=== PATIENT | male | born 1985 | race Caucasian/White ===

== ENCOUNTER 2022-03-18 01:44 | Outpatient (CLI) | payer OTHER | END 2022-03-18 01:45 | disposition critical access hospital (66) | LOC: EMS 01:44 | DX: R07.9 Chest pain, unspecified (principal) | CPT/HCPCS: A0425; A0427 ==

== ENCOUNTER 2022-03-18 02:02 | Emergency (ER) | payer OTHER ==
[2022-03-18] MEDS ORDERED: LIDOCAINE VISCOUS 2% 15 ML UDC MM STA (02:06)
[2022-03-18] MEDS ORDERED: MAG HYDROX/AL HYDROX/SIMETH 30 ML UDC PO STA (02:06)
[2022-03-18 02:47] LABS: BASOPHILS # (AUTO) 0.1 10^3/uL (0.0-0.1); BASOPHILS % (AUTO) 0.6 %; EOSINOPHILS # (AUTO) 0.1 10^3/uL (0.0-0.7); EOSINOPHILS % (AUTO) 1.1 %; HCT - HEMATOCRIT 37.4 % (42.0-52.0); HGB - HEMOGLOBIN 13.3 g/dL (14.0-18.0); LYMPHOCYTES # (AUTO) 1.9 10^3/uL (1.5-3.5); LYMPHOCYTES % (AUTO) 18.6 %; MEAN CORPUSCULAR HEMOGLOBIN 31.2 pg (27.0-31.0); MEAN CORPUSCULAR HGB CONC 35.6 g/dL (32.0-36.0); MEAN CORPUSCULAR VOLUME 87.8 fL (80.0-94.0); MEAN PLATELET VOLUME 9.5 fL (7.4-11.4); MONOCYTES # (AUTO) 0.9 10^3/uL (0.0-1.0); MONOCYTES % (AUTO) 8.8 %; NEUTROPHILS # (AUTO) 7.3 10^3/uL (1.5-6.6); NEUTROPHILS % (AUTO) 70.7 %; PLT - PLATELET COUNT 282 10^3/uL (130-450); RED BLOOD COUNT 4.26 10^6/uL (4.70-6.10); RED CELL DISTRIBUTION WIDTH 12.3 % (12.0-15.0); WHITE BLOOD COUNT 10.3 x10^3/uL (4.8-10.8)
[2022-03-18 03:13] LABS: ALBUMIN 4.4 g/dL (3.2-5.5); ALBUMIN/GLOBULIN RATIO 1.5 (1.0-2.2); BILIRUBIN,TOTAL 0.9 mg/dL (0.2-1.0); CALCIUM 9.1 mg/dL (8.5-10.3); CREATININE 0.9 mg/dL (0.6-1.2); POTASSIUM 3.6 mmol/L (3.5-5.0); TOTAL PROTEIN 7.3 g/dL (6.7-8.2)
--- NOTE | 2022-03-18 03:31 | ED Physician Documentation ---
PD HPI CHEST PAIN - Stated complaint Stated Complaint: CHEST PX - Chief complaint Chief Complaint: Cardiac - History obtained from History obtained from: Patient - History of Present Illness Timing - onset: Yesterday Timing - onset during: Rest Timing - duration: Days (1) Timing - details: Abrupt onset, Still present Quality: Sharp, Pain Location: Substernal Radiation: No: Jaw, Neck, Back, Abdominal, Left upper extremity, Right upper extremity Improved by: Antacids Worsened by: Other (alcohol) Associated symptoms: No: Shortness of air, Diaphoresis, Nausea, Vomiting, Feelin g faint / dizzy, General Weakness, Palpitations, Cough Similar symptoms before: Diagnosis (GERD) Recently seen: Other (seen out of state) - Additional information Additional information: 36-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 He has had similar symptoms previously after drinking and he has been seen previously for this and prescribed omeprazole. He had improvement of his symptoms when he discontinued drinking and he has stopped taking his omeprazole and he did some drinking again and now has symptoms again. Despite taking his omeprazole yesterday morning he continues to have pain and has come to the emergency department this evening anxious about the possibility of a heart attack. Review of Systems Constitutional: denies: Fever Ears: denies: Ear pain Nose: denies: Congestion Throat: denies: Sore throat Cardiac: reports: Chest pain / pressure. denies: Palpitations, Pedal edema, Calf pain Respiratory: denies: Dyspnea, Cough, Hemoptysis, Wheezing GI: denies: Abdominal Pain, Nausea, Vomiting, Constipation, Diarrhea : denies: Dysuria, Frequency PD PAST MEDICAL HISTORY - Present Medications Home Medications: Ambulatory Orders Medication Instructions Recorded Confirmed Sucralfate [Carafate] 1 gm PO ACHS #60 tablet 03/18/22 - Allergies Allergies/Adverse Reactions: Allergies Allergy/AdvReac Type Severity Reaction Status Date / Time No Known Drug Allergies Allergy Verified 03/18/22 02:20 PD ED PE NORMAL - Vitals Vital signs reviewed: Yes (Hypertensive mild) - General General: Alert and oriented X 3, No acute distress, Well developed/nourished - HEENT HEENT: Atraumatic, PERRL, EOMI - Neck Neck: Supple, no meningeal sign, No bony TTP - Cardiac Cardiac: RRR, No murmur - Respiratory Respiratory: No respiratory distress, Clear bilaterally - Abdomen Abdomen: Normal bowel sounds, Soft, Non tender, Non distended, No organomegaly - Back Back: No CVA TTP, No spinal TTP - Derm Derm: Normal color, Warm and dry, No rash - Extremities Extremities: No deformity, No edema - Neuro Neuro: Alert and oriented X 3, 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, No motor deficit, No sensory deficit, Normal speech Eye Opening: Spontaneous Motor: Obeys Commands Verbal: Oriented GCS Score: 15 - Psych Psych: Normal mood, Normal affect Results - Vitals Vitals: Vital Signs - 24 hr 03/18/22 03/18/22 03/18/22 02:16 02:59 03:56 Temperature 36.7 C Heart Rate 84 71 90 Respiratory 20 18 16 Rate Blood Pressure 139/88 H 119/91 H 116/85 H O2 Saturation 97 98 98 Oxygen O2 Source Room air - EKG (time done) 0210 Rate: Rate (enter#) (72) Rhythm: NSR, Other (PAC's) Natalia: Normal Intervals: Normal MI QRS: Normal Ischemia: Normal ST segments Compare to prior EKG: Old EKG unavailable Computer interpretation: Agree with computer - Labs Labs: Laboratory Tests 03/18/22 03/18/22 03/18/22 02:40 02:40 02:40 WBC 10.3 RBC 4.26 L Hgb 13.3 L Hct 37.4 L MCV 87.8 MCH 31.2 H MCHC 35.6 RDW 12.3 Plt Count 282 MPV 9.5 Neut # (Auto) 7.3 H Lymph # (Auto) 1.9 [place] # (Auto) 0.9 Eos # (Auto) 0.1 Baso # (Auto) 0.1 Absolute Nucleated RBC 0.00 Nucleated RBC % 0.0 Sodium 140 Potassium 3.6 Chloride 107 Carbon Dioxide 23 Anion Gap 10.0 BUN 13 Creatinine 0.9 Estimated GFR (MDRD) 96 Glucose 118 H Calcium 9.1 Total Bilirubin 0.9 AST 19 ALT 18 Alkaline Phosphatase 53 Troponin I High Sens < 2.3 L Total Protein 7.3 Albumin 4.4 Globulin 2.9 Albumin/Globulin Ratio 1.5 Lipase 41 - Rads (name of study) Chest Radiology: Prelim report reviewed (Impression: 1. There is no active disease in the chest.), EMP read indepedently, See rad report PD MEDICAL DECISION MAKING - ED course Complexity details: reviewed results, re-evaluated patient, considered differential, d/w patient ED course: 36-year-old male with a prior history of GERD has recurrence of his symptoms after he started drinking again and comes to the Emergency Department concerned about the possibility of heart attack. He has a normal electrocardiogram normal troponin normal blood counts and electrolytes normal chest x-ray and he responds to viscous lidocaine and Mylanta. We will place the patient on some Carafate in addition to his omeprazole I have instructed the patient to do this treatment for 2 weeks. Departure - Departure Disposition: Home, Self Care Clinical Impression: GERD (gastroesophageal reflux disease) Qualifiers: Esophagitis presence: esophagitis presence not specified Qualified Code(s): K21.9 - Gastro-esophageal reflux disease without esophagitis Condition: Stable Instructions: ED GERD Follow-Up: [facility] Miramontes [Provider Group] Prescriptions: Sucralfate [Carafate] 1 gm PO ACHS #60 tablet Comments: Unruly, today it looks like you have irritated the lining of your stomach or your distal esophagus and are having symptoms again. The recommendation is to take some omeprazole on a regular basis to reduce the acid in your stomach and allow this to heal. In addition I have prescribed some Carafate. This is used to coat the esophagus and stomach and aid in healing. [facility] [place]. This medicine needs to be taken half hour before eating and at bedtime. My recommendation is to take both the omeprazole and the Carafate for 2 weeks. Avoid alcohol and ibuprofen. If you continue to have symptoms after completing treatment a follow-up with your primary care doctor is in order to consider evaluation by the block cleaner.
[2022-03-18] MEDS ORDERED: SUCRALFATE 1 GM/10 ML UDC PO STA (03:36)
[2022-03-18 03:57] VITALS: BP 116/85
--- NOTE | 2022-03-18 07:59 | XRAY Report ---
PROCEDURE: Chest 1 View X-Ray INDICATIONS: chest pain TECHNIQUE: One view of the chest was acquired. COMPARISON: None FINDINGS: Surgical changes and devices: None. Lungs and pleura: No pleural effusions or pneumothorax. Lungs are clear. Mediastinum: Mediastinal contours appear normal. Heart size is normal. Bones and chest wall: No suspicious bony lesions. Overlying soft tissues appear unremarkable. IMPRESSION: Portable chest within normal limits for age. Note: No significant discrepancy from the preliminary report. Reviewed by: Ehsan Recio MD on 03/18/2022 6:57 AM CARRILLO Approved by: Ehsan Recio MD on 03/18/2022 6:57 AM CARRILLO Station ID: [id number]
== END 2022-03-18 04:09 | disposition home or self-care (01) ==
LOC: EDBD → ED 02:02
DX: K21.9 Gastro-esophageal reflux disease without esophagitis (principal)
CPT/HCPCS: 36415; 71045; 80053; 83690; 84484; 85025; 93005; 99284; A9270